=== PATIENT | female | born 1935 | race African-American/Black ===

== ENCOUNTER 2016-09-11 05:11 | Day surgery (SDC) | payer OTHER, MEDICARE ==
[2016-09-11] VITALS (11 sets, daily range): BP systolic 130–147; BP diastolic 68–87
[~2016-09-11] VITALS: Ht 170.2 cm; Wt 73.9 kg
--- NOTE | ~2016-09-11 | O ---
[facility] [place] [address] OPERATIVE REPORT Name: NANDINI ORR Room #: DEP [facility].#: [id number] Admission: 09/11/16 Attend Phys: Tanmay Denney MD, F Discharge: 09/12/16 Date of : 39 Report #: [id number] THIS REPORT FOR: //name// CC: Tanmay Denney [facility] Ghulam Steven DATE OF SERVICE: 09/11/2016 PREOPERATIVE DIAGNOSIS: Left inguinal hernia. POSTOPERATIVE DIAGNOSIS: Left indirect inguinal hernia. PROCEDURE: Open repair of left indirect inguinal hernia with placement of patch Surgimesh. SURGEON: Tanmay Denney M.D. LOADING SHOVEL OILER: Kuldip Singh MS3. SECOND CORPORATE JOB TITLES: Jojo Penn MS3. INDICATIONS: A 81-year-old lady who has developed, in the last 2-3 months, progressive intermittent bulging in the left inguinal canal. This is sometimes present and other times is not. It is most profound when the patient strains or coughs. This is consistent with a left inguinal hernia. OPERATIVE PROCEDURE: The patient had thorough discussion of the procedure, benefits and risks. She gave informed consent to proceed. She was brought to the operating room suite and had satisfactory induction of general endotracheal anesthesia. She had been off of her warfarin therapy for approximately 3-4 days. Her INR was 1.6 at the time of operation. After satisfactory induction of general anesthesia, the patient's entire lower abdomen was prepped and painted with DuraPrep solution. Draping was completed and non-iodine containing clear Ioban dressing was placed over the operative site. The operative site had been previously marked. After draping was completed, an appropriate timeout was then performed. A 0.5% plain Naropin was utilized at the incision site, 50 mL was utilized during the procedure. Curvilinear incision following the inguinal crease was performed. Dissection was carried down to the external oblique fascia. The external oblique fascia was opened and there was a fingertip defect in the transversalis fascia approximately near the internal ring. There was also a structure consistent to contain the round ligament, which was also a defect consistent with an indirect hernia. The round ligament was transected, ligated distally and proximally. A Surgimesh patch was cut appropriate for the floor of the inguinal canal. This was sutured in place with 0 Prolene suture beginning at the symphysis pubis and laterally. This mesh was sutured to the [facility] [address] [place] [address] OPERATIVE REPORT Name: NANDINI ORR Room #: [facility] [place]#: [id number] Admission: 09/11/16 Attend Phys: Tanmay Denney MD, F Discharge: 09/12/16 Date of : 39 Report #: [id number] Spencer's ligament with transition into the shelving border of the inguinal ligament. Laterally, this was approximated to the transversalis fascia. Medially, the patch was sutured to the symphysis pubis and the lateral border of the rectus sheath transitioning into the transversalis fascia. This was also completed by suturing and ligating to the transversalis fascia. After this was complete, the external oblique fascia was then approximated with running 2-0 PDS suture. Jocelyn's fascia was approximated with running 3-0 Vicryl suture. The more superficial subcutaneous tissue was approximated with running 3-0 Vicryl. Skin margins were approximated with subcuticular 4-0 Monocryl. SkinFix was applied to the incision. Ice bag was placed in the recovery room. The patient tolerated the procedure well, with an estimated blood loss of less than 5 mL. She returned to recovery room in stable and satisfactory condition. <ELECTRONICALLY SIGNED> By: Tanmay Denney MD, FACS 09/13/16 1629 [id number] 1230 Tanmay Denney MD, FACS /nt
--- NOTE | ~2016-09-11 | EKG ---
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: MIRIAM : 1935 Requested By: Tanmay Denney Order Number: [id number] MD: Kvng Connell Measurements Intervals [place] Rate: 68 P: 63 RI: 190 QRS: -18 QRSD: 110 T: 49 QT: 432 QTc: 460 Interpretive Statements Sinus rhythm Probable left atrial enlargement Inferior infarct, old Compared to ECG 12/30/2015 15:52:40 No significant changes Electronically Signed On 09-11-2016 11:48:15 INSULATING MACHINE OPERATOR by Kvng Connell [email or web address] <ELECTRONICALLY SIGNED> By: Kvng Connell MD 09/11/16 1148 112 112 Kvng Connell MD /EPI
[~2016-09-11 05:11] MED LIST: ADULT LOW DOSE81 MG PO; ALL DAY ALLERGY10 M2 PO; AMLODIPINE BESYL5 MG PO; ASPIRIN325 PO; AUGMENTIN 875875 MG PO; BROMDAY1.7 ML OP; CALTRATE-600 W1 EACH PO; CARDIZEM CD180 MG PO; CENTRUM SILVER1 EAC1 PO; CENTRUM SILVER1 EAC4 PO; COUMADIN 5 MG TA5 M1 PO; EPIPEN0.3 MG/0.3 IM; FOSAMAX 70 MG T70 M1 PO; HYDROCODONE-AP1 EAC6 PO; LOSARTAN-HCTZ1 EAC1 PO; LOSARTAN-HCTZ1 EACH PO; MICARDIS HCT 81 EAC1 PO; NORCO 5-325 TA1 EACH PO; POTASSIUM20 PO; PRED FORTE 1% EY5 M1; PROBIOTIC1 EAC1 PO; PROTONIX40 M2 PO; TOPROL XL25 MG PO; TRAMADOL 50 MG50 MG PO; VITAMIN D3400 UNIT PO; VITAMIN D400 UNI1 PO; XARELTO10 MG PO; ZANTAC 150MG T150 M1 PO
[2016-09-11 10:55] LABS: HEMATOCRIT 41.4 % (37.0-47.0); HEMOGLOBIN 13.6 gm/dL (12.0-15.0); MCH 28.8 pg (26.0-34.0); MCHC 32.8 % (28.0-37.0); MCV 87.8 fL (80.0-100.0); RBC 4.71 mil/uL (4.20-5.00); RDW 13.8 % (10.5-14.5); WBC 3.5 thou/uL (4.0-11.0)
[2016-09-11 11:04] LABS: CALCIUM 8.6 mg/dL (8.5-10.1); CREATININE 0.9 mg/dL (0.6-1.3); POTASSIUM 3.3 mmol/L (3.5-5.1)
[2016-09-11 11:08] LABS: INR 1.6; PROTIME 15.8 Seconds (9.3-11.4)
[2016-09-11 11:10] LABS: ALBUMIN 3.9 g/dL (3.4-5.0); TOTAL BILIRUBIN 0.7 mg/dL (<0.1-1.0); TOTAL PROTEIN 8.1 g/dL (6.4-8.2)
[2016-09-12 03:04] VITALS: BP 141/81
[2016-09-12 05:06] LABS: HEMATOCRIT 38.1 % (37.0-47.0); HEMOGLOBIN 12.3 gm/dL (12.0-15.0); MCH 28.6 pg (26.0-34.0); MCHC 32.2 % (28.0-37.0); MCV 88.8 fL (80.0-100.0); RBC 4.29 mil/uL (4.20-5.00); RDW 13.5 % (10.5-14.5); WBC 6.3 thou/uL (4.0-11.0)
[2016-09-12 05:19] LABS: INR 1.4; PROTIME 14.3 Seconds (9.3-11.4)
[2016-09-12 05:35] LABS: CALCIUM 8.1 mg/dL (8.5-10.1); CREATININE 0.9 mg/dL (0.6-1.3); POTASSIUM 3.5 mmol/L (3.5-5.1)
[2016-09-12 07:20] VITALS: BP 135/73
[2016-09-12 16:27] VITALS: BP 126/70
[2016-09-12 18:58] VITALS: BP 126/70
== END 2016-09-12 20:00 | disposition home or self-care (01) ==
LOC: TBA 05:11 → OR 05:11 → 4N 16:46 → OR 09-12 20:00
PROVIDERS: Surgery
DX: K40.90 Unilateral inguinal hernia, without obstruction or gangrene, not specified as recurrent (principal); I10 Essential (primary) hypertension; I48.91 Unspecified atrial fibrillation; K21.9 Gastro-esophageal reflux disease without esophagitis; Z90.710 Acquired absence of both cervix and uterus; Z98.49 Cataract extraction status, unspecified eye; Z96.1 Presence of intraocular lens; Z98.890 Other specified postprocedural states
CPT/HCPCS: 50010; 50101; 50386; 50403; 50788; 56524; 56525; 56526; 56531; 62110; 62900; 64007; 70005

== ENCOUNTER 2019-05-23 04:40 | Emergency (ER) | payer OTHER, MEDICARE ==
[~2019-05-23] VITALS: Ht 170.2 cm; Wt 73.5 kg
[2019-05-23 05:10] LABS: ABSOLUTE NEUTROPHILS 3.8 thou/uL (1.4-8.2); BASOPHILS 0.3 % (0.0-2.0); EOSINOPHILS 0.3 % (0.0-3.0); HEMATOCRIT 46.9 % (37.0-47.0); HEMOGLOBIN 15.4 gm/dL (12.0-15.0); LYMPHOCYTES 17.8 % (24.0-44.0); MCH 29.9 pg (26.0-34.0); MCHC 32.8 g/dL (28.0-37.0); MCV 91.2 fL (80.0-100.0); MONOCYTES 2.3 % (1.0-8.0); PLATELET COUNT 163 thou/uL (150-400); POLYS 79.3 % (36.0-66.0); RBC 5.15 mil/uL (4.20-5.00); RDW 14.7 % (10.5-14.5); WBC 4.7 thou/uL (4.0-11.0)
[2019-05-23] MEDS ORDERED: FLUOCINONI0.05 %/31 TOP (05:18)
[2019-05-23] MEDS ORDERED: FLECAINIDE ACET50 M1 PO (05:19)
[2019-05-23 05:23] LABS: ANION GAP 11 mmol/L (7-16); BUN 12 mg/dL (7-18); CALCIUM 9.7 mg/dL (8.5-10.1); CHLORIDE 102 mmol/L (98-107); CO2 26 mmol/L (21-32); CREATININE 0.9 mg/dL (0.6-1.0); GLUCOSE 152 mg/dL (74-106); POTASSIUM 4.2 mmol/L (3.5-5.1); SODIUM 139 mmol/L (136-145)
[2019-05-23 05:32] LABS: TROPONIN-I <0.06 ng/mL (<0.06)
[2019-05-23 06:22] VITALS: BP 133/69
--- NOTE | 2019-05-23 11:32 | EKG ---
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
== END 2019-05-23 06:30 | disposition home or self-care (01) ==
LOC: ER 04:40
PROVIDERS: Emergency Medicine
DX: R00.2 Palpitations (principal); I48.91 Unspecified atrial fibrillation; K21.9 Gastro-esophageal reflux disease without esophagitis; I10 Essential (primary) hypertension; Z90.710 Acquired absence of both cervix and uterus; Z90.49 Acquired absence of other specified parts of digestive tract; Z98.890 Other specified postprocedural states; Z91.041 Radiographic dye allergy status